=== PATIENT | female | born 1995 | race Caucasian/White ===

== ENCOUNTER 2018-09-18 01:07 | Emergency (ER) | payer BC, MEDICAID, OTHER ==
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
[2018-09-18] MEDS ORDERED: cefTRIAXone 1 GM Vial IM ONE (01:41)
[2018-09-18] MEDS ORDERED: Phenazopyridine 95 MG Tab PO ONE (01:43)
[2018-09-18] MEDS ORDERED: Ketorolac 60 MG/2 ML SDV IM ONE (02:19)
== END 2018-09-18 02:40 | disposition home or self-care (01) ==
LOC: LL.ED 01:07
DX: N30.01 Acute cystitis with hematuria (principal); F41.8 Other specified anxiety disorders; Z71.6 Tobacco abuse counseling; Z87.891 Personal history of nicotine dependence; M19.90 Unspecified osteoarthritis, unspecified site; Z98.890 Other specified postprocedural states
CPT/HCPCS: 81001; 87086; 87088; 87186; 96372; 99283; A9270; J0696; J1885; J2001